=== PATIENT | male | born 2000 | race Caucasian/White ===

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

== ENCOUNTER → 2021-10-24 | Outpatient (CLI) | payer OTHER ==
--- NOTE | 2021-10-24 16:31 | XR ---
Result: History: Pain/injury. Comparison: None available. Technique: 3 views of the left knee. Findings: No acute fracture or dislocation is seen. The visualized osseous structures are in anatomic alignmen t. The joint spaces are preserved. There is no significant knee joint effusion. Impression: No acute osseous abnormality.
== END | disposition home or self-care (01) ==
LOC: RADXRMAIN 16:10
PROVIDERS: ATTEND Emergency Medicine
DX: S83.92XA Sprain of unspecified site of left knee, initial encounter (principal); X58.XXXA Exposure to other specified factors, initial encounter

== ENCOUNTER 2022-08-10 12:34 | Emergency (ER) | payer OTHER ==
[2022-08-10 13:04] VITALS: BP 132/71; PULSE 101; RESP 18; TEMP 98.6
--- NOTE | 2022-08-10 13:17 | ED ---
General Adult HPI - General Chief complaint: Extremity Injury, Lower Stated complaint: IHS-knee injury Time Seen by Provider: 08/10/22 13:08 Source: patient, RN notes reviewed Mode of arrival: ambulatory Limitations: no limitations - History of Present Illness Initial comments: Patient is a pleasant 22-year-old male presenting to the emergency Department with left knee pain. Onset of symptoms was prior to arrival. Patient was at work on steps that were wet and cold. Patient did slip. Patient twisted his knee and did feel a pop. Patient has had discomfort since that time. Patient did have a previous knee injury within the last year. Patient is ambulatory with pain. No other area of injury or concern. - Related Data Home Medications Medication Instructions Recorded Confirmed Citalopram Hydrobromide [CeleXA] 20 mg PO HS 02/20/18 02/20/18 Levocetirizine Dihydrochloride 5 mg PO HS 02/20/18 02/20/18 [Xyzal] Montelukast [Singulair] 10 mg PO DAILY 02/20/18 02/20/18 Omeprazole 20 mg PO DAILY 02/20/18 02/20/18 buPROPion XL [Wellbutrin Xl] 300 mg PO DAILY 02/20/18 02/20/18 lamoTRIgine [LaMICtal] 25 mg PO DAILY 02/20/18 02/20/18 lamoTRIgine [LaMICtal] 50 mg PO HS 02/20/18 02/20/18 Allergies Allergy/AdvReac Type Severity Reaction Status Date / Time Penicillins Allergy Rash/Hives Verified 08/10/22 13:03 Review of Systems ROS Statement: Those systems with pertinent positive or pertinent negative responses have been documented in the HPI. ROS Other: All systems not noted in ROS Statement are negative. Constitutional: Denies: fever Eyes: Denies: eye pain ENT: Denies: ear pain Respiratory: Denies: cough Cardiovascular: Denies: chest pain Endocrine: Denies: fatigue Gastrointestinal: Denies: abdominal pain Genitourinary: Denies: dysuria Musculoskeletal: Reports: as per HPI Skin: Denies: rash Neurological: Denies: weakness Past Medical History Past Medical History: No Reported History History of Any Multi-Drug Resistant Organisms: None Reported Past Surgical History: Appendectomy Past Psychological History: Depression Smoking Status: Never smoker Past Alcohol Use History: None Reported Past Drug Use History: None Reported General Exam Limitations: no limitations General appearance: alert, in no apparent distress Head exam: Present: normocephalic Eye exam: Present: normal appearance Neck exam: Present: normal inspection. Absent: tenderness Respiratory exam: Present: normal lung sounds bilaterally Cardiovascular Exam: Present: regular rate, normal rhythm Expanded Peripheral pulses: 2+: Posterior Tibialis (L), Dorsalis Pedis (L) GI/Abdominal exam: Present: soft. Absent: tenderness Extremities exam: Present: full ROM, tenderness (Mild tenderness left medial meniscus region) Left Knee exam: Present: tenderness. Absent: swelling, abrasion, ecchymosis, deformity, crepitus, dislocation, erythema, effusion, pain w/ pronation/supination, posterior draw sign, pain/laxity with valgus, pain/laxity with varus Back exam: Present: normal inspection Neurological exam: Present: alert. Absent: motor sensory deficit Psychiatric exam: Present: normal affect, normal mood Skin exam: Present: normal color Course Vital Signs 08/10/22 13:02 Temperature 98.6 F Pulse Rate 101 H Respiratory 18 Rate Blood Pressure 132/71 O2 Sat by Pulse 99 Oximetry Medical Decision Making - Medical Decision Making Patient reevaluated and updated. - Radiology Data Interpreted by me: Left knee x-ray reveals no acute process. Disposition Clinical Impression: Knee injury Disposition: HOME SELF-CARE Condition: Stable Instructions (If sedation given, give patient instructions): Knee Sprain (ED) Additional Instructions: Ice to affected area. Rest. Motrin as needed. Please follow-up with [facility] services in the next day or 2 for recheck. Return for increased pain, swelling, weakness, worsening or changing symptoms or any other concerns. Is patient prescribed a controlled substance at d/c from ED?: No Referrals: Celso Maguire MD [Primary Care Provider] - 1-2 days Time of Disposition: 13:50
--- NOTE | 2022-08-10 13:59 | XR ---
EXAMINATION TYPE: XR knee complete LT DATE OF EXAM: 08/10/2022 COMPARISON: 10/24/2021 HISTORY: 22-year-old male with pain after injury TECHNIQUE: 3 views FINDINGS: The extensor mechanism is intact. No acute fracture, subluxation, dislocation is seen. IMPRESSION: No acute osseous abnormality seen.
== END 2022-08-10 14:02 | disposition home or self-care (01) ==
LOC: EC 12:34
DX: S89.92XA Unspecified injury of left lower leg, initial encounter (principal); F32.A Depression, unspecified; Z88.0 Allergy status to penicillin; W01.0XXA Fall on same level from slipping, tripping and stumbling without subsequent striking against object, initial encounter
CPT/HCPCS: 99283